=== PATIENT | male | born 1955 | race Caucasian/White ===

== ENCOUNTER → 2019-01-29 | Outpatient (REF) | payer BC ==
[2019-01-29 19:18] LABS: FREE T4 0.78 NG/DL (0.76-1.46); THYROID STIMULATING HORMONE 0.974 uIU/ML (0.358-3.740)
[2019-01-29 19:21] LABS: TESTOSTERONE 367 NG/DL (241-827)
[2019-01-30 10:56] LABS: THYROGLOBULIN ANTIBODY < 15.0 U/ML (<60.0); THYROID PEROXIDASE ANTIBODY < 28.0 U/ML (<60.0)
== END ==
LOC: M LABDRAW1 17:18
PROVIDERS: ATTEND Internal Medicine Endocrinology, Diabetes & Metabolism
DX: E04.2 Nontoxic multinodular goiter (principal); N62 Hypertrophy of breast

== ENCOUNTER → 2021-12-22 | Outpatient (CLI) | payer MEDICARE | LOC: M RAD 09:59 | PROVIDERS: ATTEND Family Medicine | DX: E04.2 Nontoxic multinodular goiter (principal) ==

== ENCOUNTER → 2023-01-14 | Outpatient (CLI) | payer MEDICARE | LOC: M RAD 13:11 | PROVIDERS: ATTEND Registered Nurse | DX: E04.2 Nontoxic multinodular goiter (principal) ==

== ENCOUNTER → 2023-10-03 | Outpatient (CLI) | payer MEDICARE ==
[~2023-10-03] MED LIST: GASTROGRAFIN SOLUTION 30ML As Ordered ONE; ISOVUE-370 76% 100ML VIAL As Ordered ONE
== END ==
LOC: M RAD 14:20
PROVIDERS: ATTEND Registered Nurse
DX: K76.89 Other specified diseases of liver (principal); N40.0 Benign prostatic hyperplasia without lower urinary tract symptoms; N32.89 Other specified disorders of bladder
CPT/HCPCS: 74178; Q9963; Q9967

== ENCOUNTER → 2023-12-03 | Outpatient (REF) | payer MEDICARE | LOC: M SFHCADAM 12:06 | PROVIDERS: ATTEND Physician Assistant | DX: R97.20 Elevated prostate specific antigen [PSA] (principal) ==

== ENCOUNTER → 2024-02-12 | Outpatient (CLI) | payer MEDICARE | LOC: M RAD 13:55 | PROVIDERS: ATTEND Registered Nurse | DX: E04.2 Nontoxic multinodular goiter (principal) ==

== ENCOUNTER → 2025-01-08 | Outpatient (CLI) | payer MEDICARE | LOC: M RAD 09:11 | PROVIDERS: ATTEND Registered Nurse | DX: R10.10 Upper abdominal pain, unspecified (principal) ==

== ENCOUNTER → 2025-04-27 | Outpatient (CLI) | payer MEDICARE | LOC: M RAD 11:30 | PROVIDERS: ATTEND Registered Nurse | DX: E04.2 Nontoxic multinodular goiter (principal) ==